=== PATIENT | male | born 1940 | race Caucasian/White ===

== ENCOUNTER 2020-05-27 15:39 | Emergency (ER) | payer OTHER ==
[2020-05-27 16:32] LABS: HEMOGLOBIN 16.6 gm/dl (14.0-17.5); RED BLOOD COUNT 5.55 M/UL (4.20-5.50); WHITE BLOOD COUNT 7.1 K/UL (4.5-11.0)
[2020-05-27 16:53] LABS: BUN/CREATININE RATIO 24 (0-10)
[2020-05-27] MEDS ORDERED: ELIQUIS 2.5 MG2.5 MG GT (21:31)
[2020-05-27] MEDS ORDERED: KEFLEX750 MG PO (21:31)
[2020-05-27] MEDS ORDERED: ELIQUIS 5 MG TAB5 MG GT (21:38)
== END 2020-05-27 21:50 | disposition home or self-care (01) ==
LOC: ER1 15:39
PROVIDERS: Student in an Organized Health Care Education/Training Program
DX: U07.1 COVID-19 (principal); N39.0 Urinary tract infection, site not specified; I48.91 Unspecified atrial fibrillation; I10 Essential (primary) hypertension; E11.9 Type 2 diabetes mellitus without complications; Z86.73 Personal history of transient ischemic attack (TIA), and cerebral infarction without residual deficits; Z79.899 Other long term (current) drug therapy; Z79.02 Long term (current) use of antithrombotics/antiplatelets; Z95.5 Presence of coronary angioplasty implant and graft
CPT/HCPCS: 0240U; 36415; 36600; 70450; 71045; 80053; 81001; 82550; 82553; 82803; 83605; 83735; 83874; 83880; 84100; 84484; 85025; 85379; 85610; 85730; 87040; 93005; 96365; 99285; J0696; J7040; Q9967